=== PATIENT | female | born 1945 | race Caucasian/White ===

== ENCOUNTER 2020-09-30 13:54 | Emergency (ER) | payer MEDICARE ==
[2020-09-30 14:01] VITALS: RESP 20; TEMP 99.6
--- NOTE | 2020-09-30 15:18 | ED ---
Skin/Abscess/FB HPI - General Chief complaint: Skin/Abscess/Foreign Body Stated complaint: L leg abscess bleeding Time Seen by Provider: 09/30/20 15:00 Source: patient Mode of arrival: ambulatory Limitations: no limitations - History of Present Illness Initial comments: 75-year-old female presents to the emergency department with a chief complaint of bleeding. Patient states she was diagnosed with a skin cancer, she cannot recall the exact name and is currently being followed up at [facility]. States she is soon going to start treatment. States the cancer is located on the medial aspect of her left leg. Patient reports she is currently on eliquis. States today she was in the shower when she accidentally rubbed her thigh to the next one. States now she has bleeding since the incident. Patient reports she was unable to stop bleeding but eventually resolve prior to ED arrival. Patient is requesting dressing to be applied until she is able to follow-up. - Related Data Allergies Allergy/AdvReac Type Severity Reaction Status Date / Time No Known Allergies Allergy Verified 09/30/20 14:01 Review of Systems ROS Statement: Those systems with pertinent positive or pertinent negative responses have been documented in the HPI. ROS Other: All systems not noted in ROS Statement are negative. Past Medical History Past Medical History: Coronary Artery Disease (CAD), Cancer, CVA/TIA History of Any Multi-Drug Resistant Organisms: None Reported Past Surgical History: Hysterectomy, Pacemaker Past Psychological History: No Psychological Hx Reported Smoking Status: Never smoker Past Alcohol Use History: Daily Past Drug Use History: None Reported General Exam Limitations: no limitations General appearance: alert, in no apparent distress Head exam: Present: atraumatic, normocephalic, normal inspection Eye exam: Present: normal appearance, PERRL, EOMI Pupils: Present: normal accommodation ENT exam: Present: normal exam, normal oropharynx, mucous membranes moist Neck exam: Present: normal inspection, full ROM. Absent: tenderness Respiratory exam: Present: normal lung sounds bilaterally. Absent: respiratory distress Cardiovascular Exam: Present: regular rate, normal rhythm, normal heart sounds. Absent: systolic murmur Extremities exam: Present: full ROM, normal capillary refill. Absent: normal inspection (Large Mass noted in the medial aspect of the left thigh. No acute bleeding noted at this time.), tenderness, pedal edema, joint swelling, calf tenderness Back exam: Present: normal inspection, full ROM Neurological exam: Present: alert, oriented X3 Psychiatric exam: Present: normal affect, normal mood Skin exam: Present: warm, dry, intact, normal color Course Vital Signs 09/30/20 09/30/20 13:57 15:25 Temperature 99.6 F Pulse Rate 112 H 98 Respiratory 20 20 Rate Blood Pressure 138/88 124/79 O2 Sat by Pulse 96 96 Oximetry Medical Decision Making - Medical Decision Making 75-year-old female presents to emergency Department with a chief complaint of bleeding. On physical examination, she has a large cancel on the left medial thigh. There was no bleeding when I evaluated the patient. I did apply a dressing and I also gave her multiple dressings that she can take home. She is going to follow up with her colleges this week. Return parameters were discussed the patient was upsetting ago. Case discussed with physician. Disposition Clinical Impression: Hemorrhage of skin lesion Disposition: HOME SELF-CARE Condition: Stable Instructions (If sedation given, give patient instructions): Abscess (ED) Additional Instructions: Please return to the Emergency Department if symptoms worsen or any other concerns. Is patient prescribed a controlled substance at d/c from ED?: No Referrals: Herlinda Art MD [Primary Care Provider] - 1-2 days Time of Disposition: 15:18
[2020-09-30 15:27] VITALS: BP 124/79; PULSE 98
== END 2020-09-30 15:26 | disposition home or self-care (01) ==
LOC: EC 13:54
DX: R23.3 Spontaneous ecchymoses (principal); I25.10 Atherosclerotic heart disease of native coronary artery without angina pectoris; Z86.73 Personal history of transient ischemic attack (TIA), and cerebral infarction without residual deficits
CPT/HCPCS: 99283